=== PATIENT | male | born 1950 | race Caucasian/White ===

== ENCOUNTER → 2020-04-15 | Day surgery (SDC) | payer BC, MEDICARE, OTHER ==
[2020-04-10 16:46] LABS: BASOPHILS % 0.4 % (0.0-1.0); EOSINOPHILS # (AUTO) 0.1 (0.0-0.4); HEMATOCRIT 39.4 % (38.2-49.6); HEMOGLOBIN 12.2 g/dL (14.0-18.0); LYMPHOCYTES # (AUTO) 1.5 (1.0-3.2); LYMPHOCYTES % 28.1 % (18.0-39.1); MEAN CORPUSCULAR HEMOGLOBIN 25.2 pg (28-32); MEAN CORPUSCULAR VOLUME 81.4 fL (81-99); MONOCYTES # (AUTO) 0.4 (0.2-0.8); MONOCYTES % 7.9 % (4.4-11.3); NEUTROPHILS # (AUTO) 3.3 (2.1-6.9); NEUTROPHILS % 61.4 % (38.7-80.0); PLATELET COUNT 189 x10e3/uL (140-360); RED BLOOD COUNT 4.84 x10e6/uL (4.3-5.7); RED CELL DISTRIBUTION WIDTH 15.1 % (11.7-14.4)
[~2020-04-15] MED LIST: BROMFENAC SODI1.7 ML; CIALIS20 MG PO; FLONASE ALLERG9.9 ML INH; HYOSCYAMINE 0.125 MG TAB ONE; LOVASTATIN20 MG PO; PROPOFOL IV EMULSION 10 MG/ML 20 ML VIAL ONE
[2020-04-15 11:40] VITALS: BP 125/87
[2020-04-15 12:20] LABS: % IRON SATURATION 23 % (15-50); IRON 73 ug/dL (65-175); TOTAL IRON BINDING CAPACITY 322 ug/dL (261-478); TRANSFERRIN 230 mg/dL (174-364)
--- NOTE | 2020-04-15 15:14 | Operative Report ---
DATE OF PROCEDURE: 04/15/2020 SURGEON: Sunil Banks MD PROCEDURE: Colonoscopy with polypectomy note. INDICATION FOR COLONOSCOPY: Surveillance colonoscopy, personal history of colon polyps. MEDICATIONS: The patient was done under MAC, please see anesthesiologist's note. PROCEDURE IN DETAIL: With the patient in left lateral decubitus position, a flexible fiberoptic Olympus colonoscope was inserted into the rectum with ease and advanced all the way to the cecum. Two minute polyps, one was removed per cold snare polypectomy and one was removed per cold biopsy forceps in the cecum. The scope was then withdrawn slowly and the single diverticulum was noted in the proximal ascending colon. Two polyps were removed via cold biopsy forceps in the ascending colon. The transverse, descending, sigmoid other than for scattered and minimal diverticular disease were within normal limits. The rectum appeared to be within normal limits. The scope was then retroflexed into the distal rectum. Small internal hemorrhoids were noted, none of which was actively bleeding. The scope was then straightened out, it was subsequently withdrawn. The patient tolerated the procedure well. IMPRESSION: 1. Cecal polyps x2, one cold snared and one cold biopsied. 2. Scattered mild diverticular disease. 3. Ascending colon polyps x2, removed per cold biopsy forceps. 4. Internal hemorrhoids, none actively bleeding. PLAN: 1. Follow up histology. 2. Initiate high-fiber, low-fat diet. 3. Initiate high-fiber supplement. 4. A total of 4 polyps were removed. 5. The patient might benefit from a followup colonoscopy in 3 years. Sunil Banks MD [facility]/JF /[id number]
== END | disposition home or self-care (01) ==
LOC: OR 08:35
PROVIDERS: ATTEND Internal Medicine Gastroenterology
DX: Z09 Encounter for follow-up examination after completed treatment for conditions other than malignant neoplasm (principal); D12.0 Benign neoplasm of cecum; D12.2 Benign neoplasm of ascending colon; K57.30 Diverticulosis of large intestine without perforation or abscess without bleeding; K64.8 Other hemorrhoids; M19.90 Unspecified osteoarthritis, unspecified site; J30.2 Other seasonal allergic rhinitis; X58.XXXA Exposure to other specified factors, initial encounter; Z01.810 Encounter for preprocedural cardiovascular examination; Z01.812 Encounter for preprocedural laboratory examination; Z11.59 Encounter for screening for other viral diseases
CPT/HCPCS: 36415 ×2; 45380; 45385; 83540; 84466; 85025; 85045; 87635; 93005; J2704; 45378

== ENCOUNTER → 2024-09-18 | Outpatient (REF) | payer MEDICARE ==
[~2024-09-18] MED LIST changes: +ARICEPT5 MG PO; +ASPIRIN EC81 MG PO; +ASTAXANTHIN4 MG PO; +CO Q-10 100 MG1 EACH PO; +DIATRIZOATE MEGL/DIATRIZOA SOD 30 ML BTL PO ONE; +FISH OIL 1,0001 EACH PO; +FOLIC ACID0.4 MG PO; -HYOSCYAMINE 0.125 MG TAB ONE; +IOPAMIDOL 370 MG/ML 100 ML INFUS..BTL INJ ONE; +LATANOPROST2.5 ML OU; +NAMENDA5 MG PO; -PROPOFOL IV EMULSION 10 MG/ML 20 ML VIAL ONE; +TUMERIC PO; +VITAMIN B-1100 M1 PO; +VITAMIN B122500 MCG PO; +VITAMIN C1000 MG PO
[2024-09-18 15:28] LABS: CREATININE, SERUM 0.87 mg/dL (0.72-1.25)
== END ==
LOC: CT 14:39
PROVIDERS: ATTEND Nurse Practitioner
DX: R10.9 Unspecified abdominal pain (principal); D64.9 Anemia, unspecified; K29.60 Other gastritis without bleeding; R19.7 Diarrhea, unspecified; R63.0 Anorexia; R63.4 Abnormal weight loss
CPT/HCPCS: 36415; 74177; 82565; 84520; Q9963; Q9967